=== PATIENT | female | born 1950 | race Caucasian/White ===

== ENCOUNTER 2017-01-15 09:11 | Emergency (ER) | payer MEDICARE, OTHER ==
[~2017-01-15] VITALS: Ht 154.9 cm; Wt 57.6 kg
[2017-01-15] MEDS ORDERED: OMEPRAZOLE40 MG PO (09:23)
[2017-01-15] MEDS ORDERED: FAMCICLOVIR500 MG PO (09:23)
[2017-01-15] MEDS ORDERED: ESTRADIOL1 MG PO (09:23)
[2017-01-15] MEDS ORDERED: TESSALON PERLE100 MG PO (09:28)
[2017-01-15] MEDS ORDERED: ZITHROMAX250 MG PO (09:28)
[2017-01-15] MEDS ORDERED: METHYLPREDNISOLO4 M1 PO (09:28)
== END 2017-01-15 09:59 | disposition home or self-care (01) ==
LOC: ED 09:11
DX: J40 Bronchitis, not specified as acute or chronic (principal); Z79.899 Other long term (current) drug therapy
CPT/HCPCS: 99282

== ENCOUNTER 2017-03-19 13:06 | Day surgery (SDC) | payer MEDICARE, OTHER ==
[~2017-03-19] VITALS: Ht 154.9 cm; Wt 59.0 kg
[~2017-03-19 13:06] MED LIST: ESTRADIOL1 MG PO; FAMCICLOVIR500 MG PO; METHYLPREDNISOLO4 M1 PO; OMEPRAZOLE40 MG PO; TESSALON PERLE100 MG PO; ZITHROMAX250 MG PO
--- NOTE | 2017-03-19 15:47 | NUR ---
03/19/17 1547 Letty Akhtar 1541 PATIENT ARRIVES TO PACU ASLEEP, OPENS EYES TO VERBAL STIMULI. RESP EVEN AND UNLABORED, NC @ 2 LITERS.
--- NOTE | 2017-04-12 07:48 | OR ---
[facility] [address] [place], [place] [address] Signed DATE OF PROCEDURE: 03/19/17 PREOPERATIVE DIAGNOSES History of sigmoid colectomy in distant past (elsewhere) for dysfunctional colon, possible episodic volvulus. Complaints of persistent poor evacuation and occasional incontinence. POSTOPERATIVE DIAGNOSIS: Normal-appearing colon including anastomosis. PROCEDURE PERFORMED: Total colonoscopy to the cecum and biopsies. SURGEON: Lul Joseph MD. ANESTHESIA Intravenous sedation, Fentanyl 100 mcg, Versed 4 mg. Preoperative antibiotic, Cefoxitin 1 g. INDICATION A 66-year-old white woman, a patient of Dr. Franklyn Kraus, well known to me from the past. A number of years ago, she underwent sigmoid resection for constipation related problem, which was perceived as a possible episodic sigmoid volvulus. She has recently had dysfunctional bowel problems including episodes of incontinence, but more commonly significant constipation. She is admitted to undergo colonoscopy to better characterize her problem understanding the risks of bleeding, infection, and perforation. FINDINGS The prep was excellent. Complete colonoscopy was undertaken to the cecum. There was no sign of anastomotic stricture, neoplasm, diverticular formation, colitis, or cancer. DESCRIPTION OF PROCEDURE The patient was brought to the endoscopy suite and placed in lateral decubitus position. Given intravenous sedation to the point of slurred speech and nystagmus. Preoperative antibiotic Cefoxitin was given based on joint replacement history. Digital rectal examination was normal. There was no sign of incontinence or anatomic anal rectal problem. An Olympus video colonoscope was passed in the rectum and manipulated into the rectum and rather high coloproctostomy any side-to-end configuration was noted. There was no sign of stricture or obstruction. The patent limb was intubated and the scope passed beyond this ultimately to the cecum without problem. The prep was quite good. Irrigation was undertaken as needed and the scope was withdrawn. Biopsies taken upon withdrawal of the scope to assess for occult colitis. Biopsies were also taken of the rectum. Retroflexed view did confirm internal hemorrhoidal changes. Electronically Signed By: LUL JOSEPH MD 04/12/17 0748 PATIENT NAME: ALLIE VICTOR OPERATIVE REPORT DATE OF : 50 PHYSICIAN: LUL JOSEPH MD REPORT #: [id number] REPORT IS CONFIDENTIAL AND NOT TO BE RELEASED WITHOUT AUTHORIZATION [address] [address] Signed ASSESSMENT She may have dysfunctional bowel accounting for symptoms as she had in the past for which sigmoid colectomy was at that time beneficial. We would start a regimen of Citrucel 1 tablespoon daily and MiraLAX 1 scoop daily. We will see her back in 4-6 weeks to assess her progress and review her pathology reports. MD MIRIAN Shahid/Bal /[id number] cc: Nikko Kraus MD Electronically Signed By: LUL JOSEPH MD 04/12/17 0748 PATIENT NAME: ALLIE VICTOR EBONI OPERATIVE REPORT DATE OF : 50 PHYSICIAN: LUL JOSEPH MD REPORT #: [id number] REPORT IS CONFIDENTIAL AND NOT TO BE RELEASED WITHOUT AUTHORIZATION
== END 2017-03-19 16:28 | disposition home or self-care (01) ==
LOC: OPS 13:06 → DS 14:00 → OPS 14:00 → DS 14:15 → OPS 16:28
PROVIDERS: Surgery
PROC: 0DBP8ZX Excision of Rectum, Via Natural or Artificial Opening Endoscopic, Diagnostic (ICD-10-PCS; 2017-03-19)
PROC: 0DBG8ZX Excision of Left Large Intestine, Via Natural or Artificial Opening Endoscopic, Diagnostic (ICD-10-PCS; principal; 2017-03-19 14:00)
DX: K64.8 Other hemorrhoids (principal); Z98.890 Other specified postprocedural states; Z85.828 Personal history of other malignant neoplasm of skin; Z90.49 Acquired absence of other specified parts of digestive tract
CPT/HCPCS: 88305; 99152; 99153; J0694; J2250; J3010; J7120

== ENCOUNTER 2017-05-16 17:51 | Inpatient (IN) | payer MEDICARE, OTHER ==
[~2017-05-16] VITALS: Ht 154.9 cm; Wt 61.9 kg
--- NOTE | 2017-05-17 10:00 | HP ---
[facility] [address] [place], [place] [address] Signed ADMISSION DATE: 05/16/2017 REASON FOR ADMISSION: Acute cholecystitis. HISTORY: This 66-year-old white woman is well known to me from the past. She began having pain yesterday, which worsened over time. She came to the emergency room where she was evaluated by Dr. Yo and underwent a CT scan of the abdomen, which showed marked dilation of the gallbladder, a laminated appearance of the wall and pericholecystic fluid highly consistent with acute cholecystitis. The patient is known to me from the past, long ago and recently as well. She recently underwent colonoscopy. She has undergone sigmoid resection a number of years ago elsewhere for what was considered sigmoid volvulus, but more likely actually problematic colonic inertia. Indeed, we had recently talked about consideration of subtotal colectomy for her progressive persistent bowel problem of constipation. She does have an elaborate method for maintaining some bowel movement frequency. Her current situation is unrelated obviously. 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 MEDICATIONS: Her medications have recently included a . Chronic medications include omeprazole, estradiol, and famciclovir. REVIEW OF SYSTEMS: She denies any shortness of breath or chest pain. She does feel better since admission and medications and fluids. She is quite markedly disturbed by pain and so forth at presentation. PHYSICAL EXAMINATION: GENERAL: A thin white woman who looks to be acutely ill. She does not appear systemically toxic, however. HEENT: Mucous membranes are quite dry. NECK: Trachea is midline. CHEST: Clear. Electronically Signed By: LUL JOSEPH MD 05/17/17 1000 PATIENT NAME: ALLIE VICTOR HISTORY AND PHYSICAL DATE OF : 50 PHYSICIAN: LUL JOSEPH MD REPORT #: [id number] REPORT IS CONFIDENTIAL AND NOT TO BE RELEASED WITHOUT AUTHORIZATION [facility] [address] [place], [place] [address] Signed HEART: Regular without murmur. ABDOMEN: Nondistended. She does have tenderness in the epigastric and right subcostal area. There is no ascites. EXTREMITIES: Show no clubbing, cyanosis, or edema. LABORATORY STUDIES: Show a white count of 9.8, hematocrit 41.7, platelets 236,000. A Chem profile is normal. Glucose is 101. Liver enzymes are normal. Lipase 23. Urinalysis, not yet performed. ASSESSMENT: I reviewed her CT scan in detail. She has markedly dilated gallbladder with laminated appearance of the wall consistent with acute cholecystitis, possibly acalculous. 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 I discussed with her the pathophysiology of biliary disease and recommendation of treatment to include cholecystectomy. At present, she is clinically dehydrated, needs intravenous fluids, parenteral pain medication, IV antibiotics, and generalized resuscitation prior to consideration of cholecystectomy. Given the late hour tonight, we would anticipate to do this tomorrow once she is ready. The risks of bleeding, infection, bile duct injury, need for open procedure, and other unforeseen complications were reviewed in detail. She understands and agrees to proceed. Lul Joseph MD JM/MODL /[id number] Electronically Signed By: LUL JOSEPH MD 05/17/17 1000 PATIENT NAME: KAYLEIGHALLIE ANN HISTORY AND PHYSICAL DATE OF : 50 PHYSICIAN: LUL JOSEPH MD REPORT #: [id number] REPORT IS CONFIDENTIAL AND NOT TO BE RELEASED WITHOUT AUTHORIZATION [facility] [address] [place] [address] Signed cc: Nikko Kraus MD Electronically Signed By: LUL JOSEPH MD 05/17/17 1000 PATIENT NAME: ALLIE VICTOR HISTORY AND PHYSICAL DATE OF : 50 PHYSICIAN: LUL JOSEPH MD REPORT #: [id number] REPORT IS CONFIDENTIAL AND NOT TO BE RELEASED WITHOUT AUTHORIZATION
[2017-05-17] MEDS ORDERED: MIRALAX17 GM PO (12:11)
[2017-05-17] MEDS ORDERED: CITRUCEL479 GM PO (12:11)
--- NOTE | 2017-05-18 05:51 | EKG ---
[facility] [address] [facility] [place], [place] [address] Signed Normal sinus rhythm Normal ECG No previous ECGs available Confirmed by DELTA MACIAS MD ([id number]) on 05/18/2017 5:51:19 AM Electronically Signed By: DELTA MACIAS MD 05/18/17 0551 PATIENT NAME: ALLIE VICTOR EBONI Electrocardiogram DATE OF : 50 PHYSICIAN: DELTA MACIAS MD REPORT #: [id number] REPORT IS CONFIDENTIAL AND NOT TO BE RELEASED WITHOUT AUTHORIZATION
--- NOTE | 2017-05-18 09:56 | OR ---
[facility] [address] [place], [place] [address] Signed DATE OF OPERATION: 05/16/2017 SURGEON: Lul Joseph MD PREOPERATIVE DIAGNOSIS: Acute cholecystitis with gallbladder hydrops. POSTOPERATIVE DIAGNOSIS: Acute calculous cholecystitis with hydrops. PROCEDURE: Laparoscopic cholecystectomy with attempted, but failed intraoperative cholangiogram (cystic duct, fibrotic and nearly occluded). ANESTHESIA: General endotracheal, Dominga Howard CRNA and local 10 mL of 0.25% Marcaine with epinephrine. INDICATION: This 66-year-old white woman is well known to me from the past and was admitted from the emergency room yesterday with severe abdominal pain, mostly in the right upper abdomen. She is known to have a probable colonic inertia problem. Evaluation included a CT scan of the abdomen, which showed a markedly distended gallbladder with lamination of the wall consistent with acute cholecystitis. Pericholecystic fluid was noted as well. There was no sign of intrahepatic ductal dilatation. Liver enzymes were normal. She has been fluid resuscitated given intravenous antibiotics and prepared for consideration of cholecystectomy today. The risks of bleeding, infection, bile duct injury, need for open procedure, failure to cure her symptoms and other unforeseen complications including common bile duct injury were all reviewed with her. She wishes to proceed. FINDINGS: The gallbladder was tense and distended and did require decompression. Thin green bile was noted. The gallbladder once excised showed no evidence of stones within the gallbladder, only chronic and subacute inflammatory change of the mucosa. As regard to the cystic duct, multiple attempts to cannulate it through various choledochotomy Electronically Signed By: LUL JOSEPH MD 05/18/17 0956 PATIENT NAME: ALLIE VICTOR OPERATIVE REPORT DATE OF : 50 PHYSICIAN: LUL JOSEPH MD REPORT #: [id number] REPORT IS CONFIDENTIAL AND NOT TO BE RELEASED WITHOUT AUTHORIZATION [facility] [address] [place], [place] [address] Signed incisions, was simply not possible due to the fibrotic nature of the cystic duct. A cholangiogram therefore was not completed, though certainly attempted. This may have a lot to do with her acute onset of hydropic gallbladder. As regard to the liver, it appeared normal without sign of cirrhotic changes and no other findings of the abdomen of concern. DESCRIPTION OF PROCEDURE: The patient was brought to the operating room, given a general endotracheal anesthetic. Preoperative antibiotic Ancef had been given. Sequential compression device stockings used and heparin was subcutaneously administered. The abdomen was prepared with a chlorhexidine solution and draped sterilely. A supraumbilical incision was made (previous low-midline incision from sigmoid colectomy in the distant past) and using an open Luke cannula technique, pneumoperitoneum was achieved at level 14 mmHg of carbon dioxide gas. Intraabdominal inspection showed no sign of ascites or carcinomatosis. The gallbladder was markedly distended and acutely inflamed. The liver appeared normal. Three additional trocars were placed in usual configuration in the subxiphoid, right midclavicular, and right anterior axillary line. The gallbladder was attempted to be grasped, but was too tense to do so and therefore a needle decompressing device was used to decompress the gallbladder of medium dark green bile. The puncture site was grasped with an instrument and this allowed for elevation of the gallbladder cephalad. Marked edema and inflammation of the infundibulum of the gallbladder was noted as well. The gallbladder was grasped and retracted laterally and using blunt and electrocautery dissection, the triangle of Calot was dissected free. Ultimately, the cystic duct was well identified. A clip was applied across gallbladder cystic duct junction and the choledochotomy incision was made in the cystic duct. Retrograde milking of the duct did not show egress of bile. Additional attempts at choledochotomy were undertaken, never truly getting into the lumen of the cystic duct. An incision was made more proximal (closer to the gallbladder), which did show the mucosa, but the catheter would not thread. At this point, I surmised that fibrotic occlusion of the cystic duct has occurred despite green bile within the gallbladder. Perhaps, this inflammatory and fibrotic change of the cystic duct was responsible for the hydropic nature of the gallbladder. No further attempts at cholangiogram were made though many attempts were made to begin with. The cystic duct remnant was triply clipped and divided and the gallbladder was dissected free in a retrograde fashion using electrocautery. The gallbladder was placed in an Endobag and extracted through the supraumbilical port site, opened on the back table and found to have chronic and subacute inflammatory change of the mucosa. No sign of neoplasm and certainly no stones. Irrigation was undertaken in Electronically Signed By: LUL JOSEPH MD 05/18/17 0956 PATIENT NAME: ALLIE VICTOR OPERATIVE REPORT DATE OF : 50 PHYSICIAN: LUL JOSEPH MD REPORT #: [id number] REPORT IS CONFIDENTIAL AND NOT TO BE RELEASED WITHOUT AUTHORIZATION [address] [address] Signed subhepatic space. There was no sign of bile leak, bleeding, or other problems. However, the inflammatory nature of the bed of the liver and the area where cautery had been used for hemostasis appeared to warrant additional measures and therefore Han powdered hemostatic agent was insufflated into the subhepatic space in the pericholecystic space. There was no sign of bleeding or other problems. Excess irrigation fluid was suctioned free. The trocars were removed under direct visualization showing no sign of bleeding. The supraumbilical fascial incision was reapproximated with interrupted 0 Vicryl suture. All wounds were copiously irrigated with saline solution. Skin was closed with interrupted 3-0 Vicryl. Steri-Strips were applied. The patient was ultimately extubated and transferred to recovery room in good condition having suffered no complication. Sponge, needle, and instrument counts reported as correct x3. MD MIRIAN Shahid/SANAZL /[id number] cc: MD Nikko Barroso MD Electronically Signed By: LUL JOSEPH MD 05/18/17 0956 PATIENT NAME: ALLIE VICTOR OPERATIVE REPORT DATE OF : 50 PHYSICIAN: LUL JOSEPH MD REPORT #: [id number] REPORT IS CONFIDENTIAL AND NOT TO BE RELEASED WITHOUT AUTHORIZATION
[2017-05-19] MEDS ORDERED: MOTRIN IB200 MG PO (13:00)
[2017-05-19] MEDS ORDERED: OXYCODON-ACETA1 EAC2 PO (13:00)
[2017-05-19] MEDS ORDERED: TYLENOL325 MG PO (13:01)
--- NOTE | 2017-05-20 08:56 | DS ---
[facility] [address] [place], [place] [address] Signed ADMISSION DATE: 05/16/2017 DISCHARGE DATE: 05/19/2017 REASON FOR ADMISSION: This 66-year-old white woman is well known to me from the past. She is known to have colonic inertia. She has undergone sigmoid resection elsewhere, stents placed for sigmoid volvulus, but in fact more likely related to her colonic inertia problem. She came to the emergency room and evaluated by Dr. Rausch with a CT scan of the abdomen for a very severe abdominal pain, which showed marked dilation of the gallbladder and laminated appearance of the wall and pericholecystic fluid, highly consistent with acute cholecystitis. She is admitted for further evaluation and care. PERTINENT PHYSICAL EXAMINATION: GENERAL: A thin white woman, who looked acutely ill. She did not appear sick, systemically toxic, however. HEENT: Mucous membranes are quite dry. Trachea midline. CHEST: Clear. HEART: Regular without murmur. ABDOMEN: Nondistended. She did have tenderness in the epigastric and right subcostal area. There is no palpable mass and no ascites. LABORATORY STUDIES: Showed a white count of 9.8, hematocrit 41.7, platelets 236,000. Chem profile is normal. Liver enzymes are normal. Lipase 23. Urinalysis incomplete. HOSPITAL COURSE: She was admitted, given intravenous antibiotics, parenteral pain medication, fluid resuscitation and so on. I reviewed her CT scan, which showed a markedly dilated gallbladder with laminated appearance consistent with acute cholecystitis, probably acalculous. In 2006, she underwent laparoscopic cholecystectomy with attempted, but failed intraoperative cholangiogram. The cystic duct was found to be fibrotic and nearly occluded. The gallbladder was markedly inflamed and markedly distended. There is no evidence of other intraabdominal problem. Cholecystectomy was performed without complication. Postoperatively, she did quite well. She was much improved immediately following operation, but still not well enough for discharge. She was given additional support including limited physical therapy in ambulation of the [place] and so forth and ultimately had complete recovery. By time of discharge, she was ambulating well, Electronically Signed By: LUL JOSEPH MD 05/20/17 0856 PATIENT NAME: ALLIE VICTOR DISCHARGE SUMMARY DATE OF : 50 PHYSICIAN: LUL JOSEPH MD REPORT #: [id number] REPORT IS CONFIDENTIAL AND NOT TO BE RELEASED WITHOUT AUTHORIZATION [address] [address] Signed tolerating a regular diet, tolerating oral analgesic and feeling much better. She will be sent home to maintain a regular diet and is encouraged to ambulate on a daily basis. DISCHARGE MEDICATIONS: Include Percocet 7.5/325 one to two p.o. q.4 hours as needed for pain, #10; ibuprofen 600 mg p.o. q.6 hours p.r.n. pain, #30; Tylenol 325 to 650 mg p.o. q.4 hours as needed for pain alternatively. She will continue with omeprazole 40 mg daily, estradiol 1 mg tablet daily, famciclovir 500 mg t.i.d., and her baseline bowel regimen including MiraLAX 1 scoop daily and Citrucel one scoop daily. FOLLOWUP PLAN: She will return to see me in approximately one month, sooner if there are problems of course. She will keep Steri-Strips on. She is permitted to shower. She should lift no more than 20 pounds for the next 2 weeks. DISCHARGE DIAGNOSES: 1. Severe acute hydropic cholecystitis, status post laparoscopic cholecystectomy without (attempted) cholangiogram. 2. Chronic long-standing colonic inertia and constipation. 3. 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 4. Reflux disease. MD MIRIAN Shahid/MODL /[id number] cc: Nikko Kraus MD Electronically Signed By: LUL JOSEPH MD 05/20/17 0856 PATIENT NAME: ALLIE VICTOR DISCHARGE SUMMARY DATE OF : 50 PHYSICIAN: LUL JOSEPH MD REPORT #: [id number] REPORT IS CONFIDENTIAL AND NOT TO BE RELEASED WITHOUT AUTHORIZATION [facility] [address] [place] [address] Raus[facility] Electronically Signed By: LUL JOSEPH MD 05/20/17 0856 PATIENT NAME: ALLIE VICTOR EBONI DISCHARGE SUMMARY DATE OF : 50 PHYSICIAN: LUL JOSEPH MD REPORT #: [id number] REPORT IS CONFIDENTIAL AND NOT TO BE RELEASED WITHOUT AUTHORIZATION
== END 2017-05-19 13:45 | disposition home or self-care (01) | DRG 418 ==
LOC: ED 17:51 → MS 19:59
PROVIDERS: ADMIT Surgery
PROC: 0FT44ZZ Resection of Gallbladder, Percutaneous Endoscopic Approach (ICD-10-PCS; principal; 2017-05-16)
DX: K80.00 Calculus of gallbladder with acute cholecystitis without obstruction (principal); K82.1 Hydrops of gallbladder; K59.09 Other constipation; K21.9 Gastro-esophageal reflux disease without esophagitis; Z90.49 Acquired absence of other specified parts of digestive tract
CPT/HCPCS: 00790; 36415; 74177; 80053; 83690; 85025; 88304; 93005; 93010; 94760; J0330; J0690; J1100; J1170; J1200; J1644; J1885; J2405; J2550; J2704; J2765; J3010; J7040; J7120; Q9967

== ENCOUNTER 2018-06-19 15:15 | Emergency (ER) | payer MEDICARE, OTHER ==
[~2018-06-19] VITALS: Ht 154.9 cm; Wt 56.7 kg
[~2018-06-19 15:15] MED LIST changes: +CITRUCEL479 GM PO; +MIRALAX17 GM PO; +MOTRIN IB200 MG PO; +OXYCODON-ACETA1 EAC2 PO; +TYLENOL325 MG PO
--- NOTE | 2018-06-21 06:57 | EKG ---
[facility] [address], [place] [address] Signed Normal sinus rhythm Normal ECG When compared with ECG of 17-MAY-2017 08:00, No significant change was found Confirmed by DELTA MACIAS MD ([id number]) on 06/21/2018 6:57:51 AM Electronically Signed By: DELTA MACIAS MD 06/21/18 0657 PATIENT NAME: ALLIE VICTOR EBONI Electrocardiogram DATE OF : 50 PHYSICIAN: DELTA MACIAS MD REPORT #: [id number] REPORT IS CONFIDENTIAL AND NOT TO BE RELEASED WITHOUT AUTHORIZATION
== END 2018-06-19 16:42 | disposition home or self-care (01) ==
LOC: ED 15:15
DX: R07.9 Chest pain, unspecified (principal); Z79.899 Other long term (current) drug therapy
CPT/HCPCS: 71045; 80053; 84484; 85025; 93005; 93010; 99285-25

== ENCOUNTER 2018-11-05 07:20 | Emergency (ER) | payer MEDICARE, OTHER ==
[~2018-11-05 07:20] MED LIST changes: +AMOXICILLIN500 MG PO; +MELATONIN5 M2 PO
--- OUTSIDE RECORDS SUMMARY | 2018-11-05 07:22 | XMS ---
PreManage Notification: ALLIE VICTOR Security Medical Insurance Claims Specialist Events No recent Security Events currently on file CRITERIA MET - [facility] - 2 Visits in 30 Days CARE PROVIDERS Yannick Montes Primary [facility] [place] PHONE: Unknown ormary Gardner or Yarn Skeins Examiner Current PHONE: Unknown DOCTOR NAQVI Primary Care Current PHONE: Unknown LARON DEWITT Primary Care [facility] PHONE: Unknown [facility] Other Current Orthopedic Surgery \T\ [facility] PHONE: Unknown Robin has no Care Guidelines for this patient. Zander VISIT COUNT (12 MO.) 3 [facility] TOTAL 3 NOTE: Visits indicate total known visits. ED/UCC VISIT TRACKING (12 MO.) 11/05/2018 07:20 [facility] TYPE: Emergency COMPLAINT: - CHEST PAIN 10/10/2018 14:36 [facility] TYPE: Emergency COMPLAINT: - MEDICATION REACTION DIAGNOSES: - Allergy status to other drugs, medicaments and biological substances status - Other group home (current) drug therapy - Pruritus, unspecified - Adverse effect of propionic acid derivatives, initial encounter - Acquired absence of other specified parts of digestive tract 06/19/2018 15:16 [facility] TYPE: Emergency COMPLAINT: - L SIDED CHEST PAIN DIAGNOSES: - Chest pain, unspecified - Precordial pain - Other exterminator helper (current) drug therapy INPATIENT VISIT TRACKING (12 MO.) No inpatient visits to display in this time frame [email or web address]
--- NOTE | 2018-11-05 11:20 | EKG ---
[facility] [address] [facility] [place], [place] [address] Signed Sinus bradycardia Otherwise normal ECG When compared with ECG of 05-NOV-2018 07:23, (Unconfirmed) No significant change was found Confirmed by DELTA MACIAS MD ([id number]) on 11/05/2018 11:20:18 AM Electronically Signed By: DELTA MACIAS MD 11/05/18 1120 PATIENT NAME: JORGE VICTORN EBONI Electrocardiogram DATE OF : 50 PHYSICIAN: DELTA MACIAS MD REPORT #: [id number] REPORT IS CONFIDENTIAL AND NOT TO BE RELEASED WITHOUT AUTHORIZATION
--- NOTE | 2018-11-05 11:20 | EKG ---
[facility] [place] [facility] [address] [facility] [place], [place] [address] Signed Sinus bradycardia Nonspecific ST abnormality Abnormal ECG When compared with ECG of 19-JUN-2018 15:20, No significant change was found Confirmed by DELTA MACIAS MD ([id number]) on 11/05/2018 11:20:07 AM Electronically Signed By: DELTA MACIAS MD 11/05/18 1120 PATIENT NAME: ALLIE VICTOR EBONI Electrocardiogram DATE OF : 50 PHYSICIAN: DELTA MACIAS MD REPORT #: [id number] REPORT IS CONFIDENTIAL AND NOT TO BE RELEASED WITHOUT AUTHORIZATION
== END 2018-11-05 11:30 | disposition home or self-care (01) ==
LOC: ED 07:20
DX: R07.89 Other chest pain (principal); Z88.8 Allergy status to other drugs, medicaments and biological substances; Z79.899 Other long term (current) drug therapy
CPT/HCPCS: 36415; 71045; 71260; 80053; 83690; 83880; 84484; 85025; 85379; 93005; 93010; 99285-25

== ENCOUNTER 2024-07-04 20:13 | Emergency (ER) | payer MEDICARE, OTHER ==
[~2024-07-04] VITALS: Ht 154.9 cm; Wt 54.4 kg
[~2024-07-04 20:13] MED LIST changes: +BENZONATATE100 MG PO; +VALACYCLOVIR500 MG PO
[2024-07-04] MEDS ORDERED: ALBUTEROL/IPRATROPIUM 3 ML NEB INH ONE (21:30)
[2024-07-04 22:00] LABS: CORONAVIRUS COVID-19 AG NEGATIVE (NEGATIVE); INFLUENZA A AG NEGATIVE (NEGATIVE); INFLUENZA B AG NEGATIVE (NEGATIVE)
[2024-07-04] MEDS ORDERED: LIDOCAINE HCL 4% 5 ML AMP INH ONE (22:00)
[2024-07-04] MEDS ORDERED: METHYLPREDNISOLO4 M1 PO (22:25)
[2024-07-04] MEDS ORDERED: INHALER, ASSIST DEVICES 1 EACH SPACER MISC ONE (22:30)
[2024-07-04] MEDS ORDERED: DEXAMETHASONE SOD PHOS 10 MG/ML VIAL PO ONE (22:30)
[2024-07-04] MEDS ORDERED: ALBUTEROL SULFATE 8 GM HOME.PACK INH ONE (22:30)
[2024-07-04 22:43] VITALS: BP 121/73
== END 2024-07-04 22:43 | disposition home or self-care (01) ==
LOC: ED 20:13
PROVIDERS: Internal Medicine
DX: J06.9 Acute upper respiratory infection, unspecified (principal); Z88.6 Allergy status to analgesic agent; Z88.7 Allergy status to serum and vaccine; Z79.899 Other long term (current) drug therapy
CPT/HCPCS: 36415; 71045; 94640; 94664; 99285-25; J1100